=== PATIENT | female | born 1950 | race Caucasian/White ===

== ENCOUNTER 2023-09-18 13:41 | Emergency (ER) | payer BC, MEDICARE ==
[2023-09-18 14:05] VITALS: BP 179/62; O2SAT 97
--- NOTE | 2023-09-18 14:13 | ED Physician Documentation ---
History of Present Illness - Stated complaint Stated Complaint: CONGESTION - Chief complaint Chief Complaint: General - History obtained from History obtained from: Patient - Additonal information Additional information: 73-year-old woman whose had congestion with productive cough with yellow-green sputum for a day. She has a history of asthma but does not feel like that is acting up. Otherwise no cardiopulmonary comorbidities. No fevers. PD PAST MEDICAL HISTORY - Past Medical History Past Medical History: Yes Cardiovascular: Hypertension, High cholesterol, Coronary artery disease Respiratory: Asthma Neuro: Migraines Endocrine/Autoimmune: HyPOthyroidism GI: Diverticulitis [employer]: Ovarian cysts : Incontinence HEENT: Chronic vision loss Psych: None Musculoskeletal: Osteoarthritis Derm: None - Past Surgical History Past Surgical History: Yes Ortho: Other Cardiovascular: Coronary stent - Present Medications Home Medications: Ambulatory Orders Medication Instructions Recorded Confirmed Doxycycline [Vibramycin] 100 mg PO BID #14 tablet 09/18/23 Levothyroxine [Synthroid] 25 mcg PO QDAC 09/18/23 09/18/23 Metoprolol Tartrate [Lopressor] 25 mg PO BID 09/18/23 09/18/23 Potassium Chloride 10 meq PO DAILY 09/18/23 09/18/23 Ticagrelor [Brilinta] 60 mg PO BID 09/18/23 09/18/23 Valsartan [Diovan] 40 mg ORAL DAILY 09/18/23 09/18/23 amLODIPine [Norvasc] 5 mg PO DAILY 09/18/23 09/18/23 hydroCHLOROthiazide [Hydrodiuril] 25 mg PO DAILY 09/18/23 09/18/23 - Allergies Allergies/Adverse Reactions: Allergies Allergy/AdvReac Type Severity Reaction Status Date / Time iodine Allergy Emesis Verified 09/18/23 13:51 Penicillins Allergy Anaphylaxis Verified 09/18/23 13:51 - Social History Does the pt smoke?: No Smoking Status: Never smoker Does the pt drink ETOH?: No Does the pt have substance abuse?: No - Immunizations Immunizations are current?: No Immunizations: Other immun not current PD ED PE NORMAL - Vitals Vital signs reviewed: Yes - General General: Alert and oriented X 3, No acute distress - Cardiac Cardiac: RRR, No murmur - Respiratory Respiratory: No respiratory distress, Other (Mildly diminished at the right base without other focal findings. Nonlabored.) - Neuro Neuro: Alert and oriented X 3 Results - Vitals Vitals: Vital Signs - 24 hr 09/18/23 13:52 Temperature 36.7 C Heart Rate 71 Respiratory 18 Rate Blood Pressure 179/62 H O2 Saturation 97 Oxygen O2 Source Room air PD Medical Decision Making - ED course ED course: She presents with symptoms could be viral, bronchitis, nor pneumonia. She does have some slightly diminished breath sounds at the right base. She was offered radiography but declined and lieu of antibiotics. She states that she has had trouble with both penicillins and azithromycin in the past and we settled on doxycycline. Departure - Departure Disposition: 01 Home, Self Care Clinical Impression: Pneumonia Condition: Good Record reviewed to determine appropriate education?: Yes Instructions: Pneumonia Dc Prescriptions: Doxycycline [Vibramycin] 100 mg PO BID #14 tablet Comments: I sent your prescription electronically to [facility] in [place]. Call your doctor to arrange a follow-up appointment, make the next available appointment. In the interim, return anytime if worse or if new symptoms develop.
== END 2023-09-18 14:37 | disposition home or self-care (01) ==
LOC: ED 13:41
DX: J18.9 Pneumonia, unspecified organism (principal); I10 Essential (primary) hypertension; E78.00 Pure hypercholesterolemia, unspecified; I25.10 Atherosclerotic heart disease of native coronary artery without angina pectoris; J45.909 Unspecified asthma, uncomplicated; E03.9 Hypothyroidism, unspecified; Z79.899 Other long term (current) drug therapy
CPT/HCPCS: 99282; 99283